=== PATIENT | male | born 1970 | race Caucasian/White ===

== ENCOUNTER 2021-08-12 14:15 | Emergency (ER) | payer OTHER ==
[2021-08-12] MEDS ORDERED: Diphtheria,Pertussis(Acell),Tetanus Vaccine 0.5 ML Syringe IM ONE (15:06)
[2021-08-12] MEDS ORDERED: Lidocaine 1% PF 2 ML SDV INJECT ONE (15:09)
== END 2021-08-12 15:33 | disposition home or self-care (01) ==
LOC: MW.ED 14:15
DX: S61.210A Laceration without foreign body of right index finger without damage to nail, initial encounter (principal); Z23 Encounter for immunization; W26.8XXA Contact with other sharp object(s), not elsewhere classified, initial encounter
CPT/HCPCS: 12001; 90471; 90715; 99282-25

== ENCOUNTER 2021-08-23 17:32 | Emergency (ER) | payer OTHER | END 2021-08-23 17:49 | disposition left against medical advice (07) | LOC: MW.ED 17:32 | DX: S61.210D Laceration without foreign body of right index finger without damage to nail, subsequent encounter (principal) | CPT/HCPCS: 99281 ==